=== PATIENT | male | born 1975 | race Caucasian/White ===

== ENCOUNTER 2019-12-26 15:22 | Inpatient (IN) ==
--- NOTE | 2019-12-26 15:58 | PROVIDER DOCUMENTATION ---
HPI-Abdominal Pain/GI Problem - General Chief Complaint: Male Stated Complaint: STOMACH PAIN "SEVERE" Time Seen by Provider: 12/26/19 15:36 Allergies/Adverse Reactions: Patient Allergies Allergy/AdvReac Type Severity Reaction Status Date / Time No Known Allergies Allergy Verified 10/24/19 10:42 Home Medications: Home Medication List Medication Instructions Recorded Confirmed Last Taken Type NK [No Home Medications] 12/26/19 12/26/19 Unknown History - History of Present Illness-ABD Nature of Presenting Problems: Patient complains of lower abdominal pain for the last day and a half. He denies N/V/D. He denies dysuria. It doesn't radiate into his flanks or testicles. Review of Systems - Adult - REVIEW OF SYSTEMS - ADULT Constitutional: reports: no symptoms reported. denies: chills, fever, fatique, night sweats, weight gain, weight loss Eyes: reports: no symptoms reported. denies: discharge, dry eyes, decreased vision, double vision, eye pain, redness Ears, Nose, Mouth & Throat: reports: no symptoms reported. denies: ear pain, hearing loss, tinnitus, sinus problem, mouth/dental pain, mouth swelling, ho arseness, throat pain Cardiovascular: reports: no symptoms reported. denies: chest pain, edema, heart murmur, orthopnea, palpitations, poor circulation, PND, syncope Respiratory: reports: no symptoms reported. denies: chronic cough, cough, dyspnea on exertion, hemoptysis, pleurisy, shortness of breath, wheezing Gastrointestinal: reports: see HPI, abdominal pain, poor appetite. denies: hematemesis, constipation, diarrhea, frequent heartburn, nausea, rectal bleeding Genitourinary: reports: see HPI. denies: dysuria, discharge, frequency, flank pain, frequent UTI's, urinary retention Musculoskeletal: reports: no symptoms reported Integumentary: reports: no symptoms reported. denies: hives, hair loss, itching, nail changes, skin sores/ulcer, skin thickening Neurological: reports: no symptoms reported. denies: dizziness/vertigo, headache/migraines, loss of balance, paresthesia, seizure, slurred speech, syncope Psychiatric: reports: no symptoms reported. denies: anxiety, anti-depressant use, alcohol/drug dependence, depression, insomnia, panic attacks, suicidal thoughts Endocrine: reports: no symptoms reported. denies: excessive sweating, goiter, cold intolerance, increased hunger, increased thirst Hematologic/Lymphatic: reports: no symptoms reported. denies: blood clots, low blood count, lymphedema, prolonged bleeding, transfusions Allergic/Immunologic: reports: no symptoms reported. denies: allergic reactions, allergic rhinitis, asthma, eczema, frequent infections, hay fever, positive PPD, urticaria All Other Systems: Reviewed and Negative Past History - Adult - PAST MEDICAL HISTORY-ADULT Review of Records: reports: Old Records Reviewed, Nursing Assessment Review, Medications Reviewed, Social history reviewed & non-contributory. Major Childhood Illnesses: reports: denies history Cardiovascular: reports: denies history Respiratory: reports: denies history Gastrointestinal: reports: denies history Obstetrical/Gynecological: reports: denies history Genitourinary: reports: denies history Musculoskeletal: reports: denies history Neurological: reports: denies history Endocrine/Immune: reports: denies history Other Conditions: reports: denies history - PRIOR SURGERIES/PROCEDURES Surgical/Procedure History: reports: reviewed, not pertinent - IMMUNIZATION STATUS Childhood Immunizations: See Nurse Assessment Flu Vaccine: See Nurse Assessment - FAMILY HISTORY Family History: reviewed, not pertinent - SOCIAL HISTORY Smoking: denies Substance Use: alcohol Alcohol Use Frequency: 3-4 times a week Number of drinks per typical drinking period:: 3-4 drinks Living Situation: family Physical Exam-General - PHYSICAL EXAM-ADULT Initial Vital Signs Reviewed: Yes - CONSTITUTIONAL General Appearance: appears well, alert, no apparent distress - EYES Eyes: PERRL/EOMI, pink conjunctivae - HEAD, EARS, NOSE, MOUTH & THROAT HENMT: normocephalic/atraumatic, moist mucous membranes, normal ENT inspection - NECK Neck: non-tender, full range of motion, supple - RESPIRATORY Respiratory: chest non-tender, lungs clear, normal breath sounds, no pleuratic chest pain - CARDIOVASCULAR Cardiovascular: normal peripheral pulses, regular rate, rhythm, no edema - GASTROINTESTINAL (ABDOMEN) Abdominal Exam: normal bowel sounds, soft, tenderness, other (bilateral lower quadrants). negative: non tender, no organomegaly, distended, guarding, rigid, rebound - LYMPHATIC Lymphatic: negative: no adenopathy, cervical node tenderness, inguinal node tender - MUSCULOSKELETAL Back Exam: normal inspection, no CVA tenderness. negative: no vertebral tenderness, CVA tenderness Extremity: normal range of motion, non-tender, normal gait - SKIN Integumentary: normal color, normal turgor, warm/dry - NEUROLOGIC Neurologic: paint stockman II-XII nml as tested, grossly normal - PSYCHIATRIC Psych/Mental Status: normal mood/affect, normal thought content, normal thought process Progress - PLAN OF CARE/RESULTS Progress/Plan/Lab Results: Vital Signs - 8 hr 12/26/19 15:25 Temperature 98.9 F Pulse Rate 89 Respiratory Rate 18 Blood Pressure 130/85 O2 Sat by Pulse Oximetry 100 Orders Category Date Time Status flat [ABDOMEN FLAT/UPRIGHT] [RAD] Stat Exams 12/26/19 15:52 Ordered URINALYSIS W/POSS RFLX CULT [URINALYSIS] Stat Lab 12/26/19 15:38 Uncollected Result Diagrams: 12/26/19 16:30 12/26/19 16:30 - XRAY 1 XRAY: Bilateral XRAY Study: Abdomen Impression: Normal, See EMR Report (EXAM: ABDOMEN FLAT/UPRIGHT 12/26/2019 HISTORY: abd pain TECHNIQUE: Flat and upright abdomen COMMENT: There is some stool and gas in the colon without evidence of dilatation. The small bowel and stomach are not distended. There are phleboliths in the pelvis. There is no evidence of organomegaly or mass. IMPRESSION: Nonspecific abdomen. Electronically signed by Hugo Nevarez 12/26/2019 4:31 PM 12/26/19 1631 Interpreting Physician: Hugo Nevarez MD Dictated Date/Time: 12/26/19 1630) XRAY Interpretation: see EMR - CT/MRI 1 CT Study: Abdomen Impression: Abnormal, See EMR Report (XAM: CT ABD/PELVIS W/IV CONT ONLY - 12/26/2019 HISTORY: rlq pain TECHNIQUE: CT abdomen/pelvis with intravenous contrast COMPARISON: None. FINDINGS: The visualized lung bases appear clear except for mild dependent atelectasis. There are no substantial abnormalities of the liver, spleen, adrenal glands, or pancreas identified. There are no calcified gallstones or pericholecystic inflammation seen. The bilateral kidneys enhance homogeneously. There is no hydronephrosis. There are no substantially enlarged lymph nodes identified. There is colonic diverticulosis which is most extensive along the sigmoid. There are inflammatory changes with wall thickening at the mid sigmoid colon. There is inflammation of fat at the anterior upper pelvis. There is some extraluminal gas within the inflamed fat to the right of the inflamed sigmoid compatible with perforated diverticulum. There is no free peritoneal air identified elsewhere. There is no evidence of bowel obstruction. The appendix shows no obvious inflammation. There is a tiny fat- containing umbilical hernia. IMPRESSION: Diverticulitis at mid sigmoid colon. Some extraluminal gas near the inflamed sigmoid compatible with perforated diverticulum. This exam was performed using automated exposure control, adjustment of mA or kV according to patient size, and/or use of iterative reconstruction technique. Electronically signed by Dawit Walters 12/26/2019 7:05 PM) Departure - Departure Date of Disposition Decision: 12/26/19 Time of Disposition Decision: 19:33 DIAGNOSIS: Diverticulitis Disposition: ADMITTED INPATIENT 09 Certified Medical Emergency: Emergent Condition: Fair Additional Instructions: ED Follow Up Instructions: You have been treated by a care provider in the Emergency Department. These instructions are being provided to you so you can have an understanding of how to care for yourself upon discharge. Upon discharge from the Emergency De partment, you are responsible for making arrangements for follow-up care by a physician of your choice. Take all prescribed medications as directed. Return to the Emergency Department immediately for any new or worsening symptoms. You may call the Physician Referral phone number at [phone] to obtain a list of Physicians who are taking new patients. Referrals and Follow-Ups: None,PCP [Primary Care Provider] - - Critical Care Note This patient required my direct & personal management of CC.: No Attestation - Physician/ ISAIAS Attestation Patient care was provided by Advanced Practice Provider:: Yes Advanced Practice Provider:: Judy Montesinos Advanced Practice Provider documentation review:: The Mid-level provider documentation, treatment plan and medical decision making was reviewed by the physician who agrees with all treatment and medical decision making by the MLP. The physician spent face to face time with patient:: No Advanced Practice Provider documentation review:: Supervising physician onsite and consulted in the evaluation and care of this patient. The physician did not have a face to face encounter with the patient.
[2019-12-26 16:32] LABS: URINE SOURCE CLEAN CATCH
--- NOTE | 2019-12-26 16:33 | Diag Imaging Result Doc PS360 ---
EXAM: ABDOMEN FLAT/UPRIGHT 12/26/2019 HISTORY: abd pain TECHNIQUE: Flat and upright abdomen COMMENT: There is some stool and gas in the colon without evidence of dilatation. The small bowel and stomach are not distended. There are phleboliths in the pelvis. There is no evidence of organomegaly or mass. IMPRESSION: Nonspecific abdomen. Electronically signed by Hugo Nevarez 12/26/2019 4:31 PM
[2019-12-26 16:43] LABS: BILIRUBIN URINE NEGATIVE (NEGATIVE); BLOOD URINE NEGATIVE (NEGATIVE); COLOR YELLOW; GLUCOSE URINE NEGATIVE (NEGATIVE); KETONE URINE NEGATIVE (NEGATIVE); LEUKOCYTES URINE NEGATIVE (NEGATIVE); NITRITE URINE NEGATIVE (NEGATIVE); PH URINE 7.5; PROTEIN URINE TRACE mg/dL (NEGATIVE); SP GRAVITY URINE 1.018; TURBIDITY URINE CLEAR (CLEAR); UROBILINOGEN URINE 4 mg/dL (NORMAL)
[2019-12-26 16:52] LABS: BASO# 0.01 X1000 (0.0-0.2); BASO% 0.1 % (0.0-0.8); EOS# 0.01 X1000 (0.0-0.7); EOS% 0.1 % (0.0-10.0); HEMATOCRIT 44.5 % (42.0-52.0); HEMOGLOBIN 15.3 g/dL (14.0-18.0); IMM GRAN# 0.02 X1000 (0.0-0.04); IMM GRAN% 0.2 % (0.0-0.5); LYMPH# 1.06 X1000 (1.2-3.4); LYMPH% 9.9 % (20.5-51.1); MCH 34.2 PG (27-31); MCHC 34.4 g/dL (33-37); MCV 99.3 FL (81-99); MONO% 5.6 % (1.7-9.3); MPV 10.5 FL (7.4-10.4); NEUT# 9.02 X1000 (1.4-6.5); NEUT% 84.1 % (42.2-75.2); PLT 188 X1000 (130-400); RBC 4.48 XMIL (4.7-6.1); RDW 12.1 % (11.5-14.5); WBC 10.72 X1000 (4.8-10.8)
[2019-12-26 16:54] LABS: URINE CASTS NONE SEEN; URINE CRYSTALS NONE SEEN; URINE SMALL ROUND CELLS NONE SEEN; URINE YEAST NONE SEEN
[2019-12-26 16:55] LABS: UR EPITHELIAL CELLS <10 /HPF (<10); URINE BACTERIA NEGATIVE /HPF; URINE RBC <10 /HPF (<10); URINE WBC <10 /HPF (<10)
[2019-12-26 17:12] LABS: AGAP 13; ALB/GLOB RATIO 1.3; ALBUMIN 4.3 g/dL (3.5-5.0); ALKALINE PHOSPHATASE 58 U/L (32-122); AMYLASE 47 U/L (20-200); BUN 11 mg/dL (8-22); CALCIUM 9.3 mg/dL (8.8-10.2); CHLORIDE 99 mmol/L (98-107); COSMO 276; CREATININE 1.1 mg/dL (0.7-1.2); ESTIMATED GFR > 60; GLUCOSE 116 mg/dL (70-104); GOT 18 U/L (10-34); GPT 27 U/L (10-44); LIPASE 24 U/L (13-60); SODIUM 138 mmol/L (136-145); TCO2 26 mmol/L (25-35); TOTAL BILIRUBIN 1.26 mg/dL (0.20-1.00); TOTAL PROTEIN 7.7 g/dL (6.3-8.3)
[2019-12-26] MEDS ORDERED: MORPHINE IV ONE (17:27)
[2019-12-26] MEDS ORDERED: ZOFRAN IV ONE (17:27)
--- NOTE | 2019-12-26 19:08 | Diag Imaging Result Doc PS360 ---
EXAM: CT ABD/PELVIS W/IV CONT ONLY - 12/26/2019 HISTORY: rlq pain TECHNIQUE: CT abdomen/pelvis with intravenous contrast COMPARISON: None. FINDINGS: The visualized lung bases appear clear except for mild dependent atelectasis. There are no substantial abnormalities of the liver, spleen, adrenal glands, or pancreas identified. There are no calcified gallstones or pericholecystic inflammation seen. The bilateral kidneys enhance homogeneously. There is no hydronephrosis. There are no substantially enlarged lymph nodes identified. There is colonic diverticulosis which is most extensive along the sigmoid. There are inflammatory changes with wall thickening at the mid sigmoid colon. There is inflammation of fat at the anterior upper pelvis. There is some extraluminal gas within the inflamed fat to the right of the inflamed sigmoid compatible with perforated diverticulum. There is no free peritoneal air identified elsewhere. There is no evidence of bowel obstruction. The appendix shows no obvious inflammation. There is a tiny fat-containing umbilical hernia. IMPRESSION: Diverticulitis at mid sigmoid colon. Some extraluminal gas near the inflamed sigmoid compatible with perforated diverticulum. This exam was performed using automated exposure control, adjustment of mA or kV according to patient size, and/or use of iterative reconstruction technique. Electronically signed by Dawit Walters 12/26/2019 7:05 PM
[2019-12-26] MEDS ORDERED: DILAUDID IV ONE (19:25)
[2019-12-26] MEDS ORDERED: FLAGYL 500 MG/NS 500 MG/100 ML IVPB IV SCH (19:30)
[2019-12-26] MEDS ORDERED: LEVAQUIN 750 MG/D5W 750 MG/150 ML IVPB IV SCH (19:30)
[2019-12-26] MEDS ORDERED: NS 1,000 ML IV ONE (19:41)
--- NOTE | 2019-12-26 21:43 | HISTORY AND PHYSICAL ---
PRIMARY CARE PROVIDER: None. CHIEF COMPLAINT: Abdominal pain. HISTORY OF PRESENTING ILLNESS: This is a 44-year-old male without any significant past medical history who presented to the emergency department with several days history of having abdominal pain. He described it as sharp and mostly in his right lower quadrant region. The patient was seen in the ED. He had imaging done, which did show diverticulitis with perforated diverticulum. Due to his presenting symptoms he will require admission for further management. At the time of my examination, patient denied any headache, fever, chills, chest pain, shortness of breath or weight changes but complained of abdominal pain and nausea. PAST MEDICAL HISTORY: None. PAST SURGICAL HISTORY: None. ALLERGIES: No known drug allergies. CURRENT MEDICATIONS: None. SOCIAL HISTORY: No history of smoking. Admits to social alcohol use. Denies any illicit drug use. FAMILY HISTORY: No history of coronary disease. REVIEW OF SYSTEMS: Fourteen-point review of systems is as in HPI. Other systems negative. PHYSICAL EXAMINATION: GENERAL: Cooperative, friendly male. He is resting comfortably now. VITAL SIGNS: Temperature 98.9 degrees, pulse 89, respirations 18, blood pressure 130/85. HEENT: Atraumatic, normocephalic. Extraocular movements intact. PERRLA. NECK: Supple. CHEST: Clear to auscultation. CARDIOVASCULAR: Regular rate and rhythm. ABDOMEN: Soft. Diffuse tenderness. EXTREMITIES: No edema. NEUROLOGIC: He is awake, alert, oriented x3. GENITOURINARY: No bladder distention. SKIN: Warm. LABORATORIES AND STUDIES: WBCs 10.72, hemoglobin 15.3, hematocrit 44.5, platelets 188,000. Sodium 138, potassium 4.0, chloride 99, CO2 is 26, BUN is 11, creatinine is 1.1, glucose 116. Abdominal and pelvic CT shows diverticulitis at the sigmoid colon and also perforated diverticulum. ASSESSMENT: A 44-year-old male without significant past medical history who presented to the emergency department with several days history of having abdominal pain. He was seen in the ED. He had imaging done which did show diverticulitis with a perforated diverticulum. Subsequently, he will require admission for further management. Assessment is diverticulitis with perforated diverticulum. PLAN: 1. We will admit patient to medical floor. 2. We will start patient on IV antibiotics. 3. Continue with IV fluids, antiemetics and adequate pain control. 4. We will consult General Surgery. 5. We will put patient on DVT prophylaxis. SCD. 6. We will continue to follow, reassess and make further recommendation based on patient's clinical course. cc: Ricky Luz MD
[2019-12-26] MEDS ORDERED: ZOFRAN IV PRN (22:10)
[2019-12-26] MEDS ORDERED: TYLENOL PO PRN (22:10)
[2019-12-27] MEDS: NS 1,000 ML IV SCH ×3 (01:03→18:32)
[2019-12-27] MEDS: ZOSYN 3.375 GM in NS 50 ML IV SCH ×4 (01:03→20:04)
[2019-12-27 07:12] LABS: BASO# 0.01 X1000 (0.0-0.2); BASO% 0.1 % (0.0-0.8); EOS# 0.08 X1000 (0.0-0.7); EOS% 1.1 % (0.0-10.0); HEMATOCRIT 40.9 % (42.0-52.0); HEMOGLOBIN 13.8 g/dL (14.0-18.0); LYMPH# 1.09 X1000 (1.2-3.4); LYMPH% 15.2 % (20.5-51.1); MCH 34.3 PG (27-31); MCHC 33.7 g/dL (33-37); MCV 101.7 FL (81-99); MONO# 0.47 X1000 (0.11-0.59); MONO% 6.6 % (1.7-9.3); MPV 10.6 FL (7.4-10.4); NEUT# 5.52 X1000 (1.4-6.5); PLT 150 X1000 (130-400); RBC 4.02 XMIL (4.7-6.1); RDW 12.2 % (11.5-14.5); WBC 7.17 X1000 (4.8-10.8)
[2019-12-27 07:44] LABS: AGAP 9; BUN 12 mg/dL (8-22); CALCIUM 8.8 mg/dL (8.8-10.2); CHLORIDE 104 mmol/L (98-107); COSMO 274; CREATININE 1.1 mg/dL (0.7-1.2); ESTIMATED GFR > 60; GLUCOSE 105 mg/dL (70-104); POTASSIUM 4.1 mmol/L (3.5-5.1); SODIUM 137 mmol/L (136-145); TCO2 24 mmol/L (25-35)
--- NOTE | 2019-12-27 11:06 | GENERAL SURGERY CONSULTATION ---
DATE: 12/27/2019 HISTORY: This is a 44-year-old healthy male who reports the onset of lower abdominal pain night before last. It persisted through the night and he sought medical attention yesterday. CT scan shows acute diverticulitis. Denies any fever or chills. This morning he says he does feel better. PAST MEDICAL HISTORY: He has no significant past medical history. PAST SURGICAL HISTORY: No previous surgery. MEDICATIONS: Takes no scheduled medications at home. ALLERGIES: Denies any drug allergies. FAMILY HISTORY: Pertinent for coronary disease. SOCIAL HISTORY: He denies smoking. Denies illicit drug use. He does drink alcohol socially. REVIEW OF SYSTEMS: Negative in all 10 subsystems except as noted above. PHYSICAL EXAMINATION: Vital Signs: He is afebrile, heart rate 69, blood pressure 131/84. Neck: No cervical adenopathy. Lungs: Bilateral breath sounds. Heart: Regular rate and rhythm. Abdomen: Soft. He is mildly tender in the lower abdomen, but he says improved compared to yesterday. Extremities: Femoral pulses are present. No peripheral edema. Neurologic: He is awake and alert. LABORATORY DATA: White count is 7000, hemoglobin 13.8, BUN 12, creatinine 1.1. IMAGING: CT scan report shows diverticulitis in the mid sigmoid with miniscule extraluminal gas. ASSESSMENT: Acute diverticulitis. RECOMMENDATION: Continued IV antibiotic therapy. Agree with starting him on liquids and advance his diet subsequently. No operative intervention is recommended at this time. cc: Inder Graham MD
--- NOTE | 2019-12-28 00:34 | PROGRESS NOTE ---
DATE: 12/27/2019 SUBJECTIVE: He still has pain but much improved. OBJECTIVE: Vital signs: Blood pressure 147/92, heart rate 83, respiratory rate 18, temperature 99.1 degrees. Cardiovascular: Regular rate and rhythm. Pulmonary: Bilateral breath sounds, diminished at bases. Abdomen: Soft, tender. Bowel sounds hyperactive. LABORATORY DATA: White count is stable, H and H 14 and 40, platelets 150,000. Electrolytes looks stable. PROBLEM LIST: 1. Acute diverticulitis with perforation and small abscess. We will continue to treat medically with IV antibiotics. Surgery is following. Clear liquid diet. 2. Abdominal pain, nausea, vomiting, likely related to diverticulitis. We will continue to monitor closely. DISPOSITION: Pending clinical status. cc: Newton Barillas MD MTDD
[2019-12-28] MEDS: ZOSYN 3.375 GM in NS 50 ML IV SCH ×3 (02:59→18:32)
[2019-12-28 07:45] LABS: BASO# 0.01 X1000 (0.0-0.2); BASO% 0.2 % (0.0-0.8); EOS# 0.15 X1000 (0.0-0.7); EOS% 3.1 % (0.0-10.0); HEMATOCRIT 40.2 % (42.0-52.0); HEMOGLOBIN 13.7 g/dL (14.0-18.0); LYMPH# 0.95 X1000 (1.2-3.4); LYMPH% 19.4 % (20.5-51.1); MCH 34.4 PG (27-31); MCHC 34.1 g/dL (33-37); MONO# 0.29 X1000 (0.11-0.59); MONO% 5.9 % (1.7-9.3); MPV 10.5 FL (7.4-10.4); NEUT# 3.49 X1000 (1.4-6.5); NEUT% 71.4 % (42.2-75.2); PLT 159 X1000 (130-400); RBC 3.98 XMIL (4.7-6.1); RDW 11.7 % (11.5-14.5); WBC 4.89 X1000 (4.8-10.8)
[2019-12-28 08:08] LABS: AGAP 10; BUN 8 mg/dL (8-22); CALCIUM 8.7 mg/dL (8.8-10.2); CHLORIDE 105 mmol/L (98-107); COSMO 276; CREATININE 1.1 mg/dL (0.7-1.2); ESTIMATED GFR > 60; GLUCOSE 106 mg/dL (70-104); POTASSIUM 3.9 mmol/L (3.5-5.1); SODIUM 139 mmol/L (136-145); TCO2 24 mmol/L (25-35)
--- NOTE | 2019-12-28 11:27 | GENERAL SURGERY PROGRESS NOTE ---
DATE: 12/28/2019 Mr. Willard says he feels significantly better. His abdomen is less tender. His white count is normal. I will switch him to solid food, and certainly I think he should be able to go home in the next 24 hours if he continues satisfactory. [facility] will be available over the weekend if needed. cc: Inder Graham MD
[2019-12-28] MEDS ORDERED: CATAPRES PO PRN (16:41)
[2019-12-28] MEDS ORDERED: BENADRYL PO PRN (16:43)
[2019-12-28] MEDS ORDERED: LEVAQUIN 500 MG/D5W 500 MG/100 ML IVPB IV SCH (16:45)
[2019-12-28] MEDS: FLAGYL 500 MG/NS 500 MG/100 ML IVPB IV SCH (18:24)
[2019-12-28] MEDS ORDERED: NS 500 ML ONE (22:02)
[2019-12-29] MEDS: FLAGYL 500 MG/NS 500 MG/100 ML IVPB IV SCH (01:46)
[2019-12-29 07:57] VITALS: BP 147/99
--- NOTE | 2019-12-29 08:26 | GENERAL SURGERY PROGRESS NOTE ---
DATE: 12/29/2019 SUBJECTIVE: The patient feels much better. He has minimal pain now. No nausea or vomiting. He is tolerating a soft diet and having bowel function. OBJECTIVE: Vital Signs: He is afebrile. Vital signs are stable. General: He is awake, alert, oriented x3. No acute distress. Gastrointestinal: Soft, nontender, nondistended. He has good bowel sounds. LABORATORY: None today. ASSESSMENT AND PLAN: A 44-year-old male with diverticulitis, which is much improved. He will be discharged home today. Instructions were given. cc: Mike Booker MD
== END 2019-12-29 11:35 | disposition home or self-care (01) | DRG 392 ==
LOC: ED 15:22 → SUATTDRO 15:23 → EDIPHOLD 15:23 → 4N 12-27 12:08
PROVIDERS: ATTEND Internal Medicine